=== PATIENT | male | born 1960 | race Caucasian/White ===

== ENCOUNTER 2021-11-25 21:08 | Inpatient (IN) | payer SELFPAY ==
[~2021-11-25] VITALS: Ht 167.6 cm; Wt 73.9 kg
--- NOTE | 2021-11-25 21:10 | NUR ---
[id number], SOB & LOW O2 SAT 74% ON RA X THURSDAY. COVID POSITIVE SINCE THEN. PATIENT ALERT AND ORIENTED X3, AMBULATORY PLACED IN BED 07 ON MONITOR AND POX. PLACED NON REBREATHER ON PATIENT AT 15L.
[2021-11-25] MEDS ORDERED: DEXAMETHASONE SOD PHOSPHATE 10 MG/ML VIAL ONE (21:39)
--- NOTE | 2021-11-25 21:48 | NUR ---
BLOOD WORK COLLECTED, SENT TO LAB.
--- NOTE | 2021-11-25 21:49 | NUR ---
GEORGE DONE AND SENT TO LAB
[2021-11-25] MEDS ORDERED: DEXAMETHASONE SOD PHOSPHATE 10 MG/ML VIAL IV ONE (22:00)
[2021-11-25 22:03] LABS: BASOPHILS % (AUTO) 0.2 % (0.0-2.0); EOSINOPHILS % (AUTO) 0.6 % (0.0-6.0); HEMATOCRIT 38 % (39-51); HEMOGLOBIN 12.9 g/dL (13.5-17.5); LYMPHOCYTES # (AUTO) 1.3 K/uL (0.8-4.8); LYMPHOCYTES % (AUTO) 9.9 % (20.0-44.0); MEAN CORPUSCULAR HGB CONC 34 g/dl (31.0-36.0); MEAN CORPUSCULAR VOLUME 88 fL (80-96); MONOCYTES # (AUTO) 0.6 K/uL (0.1-1.30); MONOCYTES % (AUTO) 4.9 % (2.0-12.0); NEUTROPHILS # (AUTO) 10.9 K/uL (1.8-8.9); NEUTROPHILS % (AUTO) 84.4 % (43.0-81.0); PLATELET COUNT (AUTO) 416 K/uL (150-450); RED BLOOD CELL COUNT(AUTO) 4.35 MIL/uL (4.5-6.0); WHITE BLOOD COUNT (AUTO) 12.9 K/uL (4.3-11.0)
[2021-11-25 22:18] LABS: CALCIUM, SERUM 7.8 mg/dL (8.5-10.1); CARBON DIOXIDE 24 mmol/L (21-32); CHLORIDE 96 mmol/L (98-107); CREATININE 0.9 mg/dL (0.6-1.3); GLUCOSE 141 mg/dL (74-106); POTASSIUM 3.7 mmol/L (3.5-5.1); SODIUM SERUM 128 mmol/L (136-145); UREA NITROGEN, BLOOD 9 mg/dL (7-18)
[2021-11-25 22:29] LABS: CREATINE KINASE, TOTAL 139 U/L (39-308)
[2021-11-25 22:32] LABS: ALANINE AMINOTRANSFERASE 61 U/L (12-78); ALBUMIN 2.9 g/dL (3.4-5.0); ALKALINE PHOSPHATASE 75 U/L (46-116); ASPARTATE AMINOTRANSFERASE 63 U/L (15-37); BILIRUBIN,TOTAL 1.3 mg/dL (0.2-1.0); TOTAL PROTEIN, SERUM 7.8 g/dL (6.4-8.2)
[2021-11-25 22:43] LABS: D-DIMER 8.73 mg/L(FEU (0.17-0.50)
--- NOTE | 2021-11-25 23:01 | NUR ---
JOSE EDUARDO LANG: [phone]
[2021-11-25 23:12] LABS: C-REACTIVE PROTEIN > 12.0 mg/dL (0.0-0.9)
[2021-11-26] MEDS ORDERED: ONDANSETRON HCL/PF 4 MG/2 ML VIAL IVP PRN
[2021-11-26] MEDS ORDERED: ACETAMINOPHEN 325 MG TABLET PO PRN
[2021-11-26] MEDS ORDERED: MAG HYDROX/AL HYDROX/SIMETH 30 ML UDC PO PRN
[2021-11-26] MEDS ORDERED: ZOLPIDEM TARTRATE 5 MG TABLET PO PRN
[2021-11-26] MEDS ORDERED: Z GUARD REMEDY 4 OZ OINT TP PRN
[2021-11-26] MEDS ORDERED: MAGNESIUM HYDROXIDE 30 ML UDC PO PRN
[2021-11-26 05:24] LABS: BASOPHILS % (AUTO) 0.2 % (0.0-2.0); EOSINOPHILS % (AUTO) 0.1 % (0.0-6.0); HEMATOCRIT 39 % (39-51); HEMOGLOBIN 13.3 g/dL (13.5-17.5); LYMPHOCYTES # (AUTO) 0.6 K/uL (0.8-4.8); LYMPHOCYTES % (AUTO) 5.1 % (20.0-44.0); MEAN CORPUSCULAR HGB CONC 34 g/dl (31.0-36.0); MEAN CORPUSCULAR VOLUME 89 fL (80-96); MONOCYTES # (AUTO) 0.4 K/uL (0.1-1.30); MONOCYTES % (AUTO) 3.2 % (2.0-12.0); NEUTROPHILS # (AUTO) 10.2 K/uL (1.8-8.9); NEUTROPHILS % (AUTO) 91.4 % (43.0-81.0); PLATELET COUNT (AUTO) 436 K/uL (150-450); RED BLOOD CELL COUNT(AUTO) 4.37 MIL/uL (4.5-6.0); WHITE BLOOD COUNT (AUTO) 11.2 K/uL (4.3-11.0)
[2021-11-26] MEDS ORDERED: ENOXAPARIN SODIUM 40 MG/0.4 ML DISP.SYRIN SQ ONE (05:40)
[2021-11-26] MEDS: ENOXAPARIN SODIUM 40 MG/0.4 ML DISP.SYRIN SQ SCH ×2 (05:43→21:28)
[2021-11-26 06:01] LABS: ALBUMIN 2.9 g/dL (3.4-5.0); BILIRUBIN,DIRECT 0.3 mg/dL (0.0-0.2); BILIRUBIN,TOTAL 1.2 mg/dL (0.2-1.0); CALCIUM, SERUM 9.3 mg/dL (8.5-10.1); CREATININE 0.9 mg/dL (0.6-1.3); MAGNESIUM 2.9 mg/dL (1.8-2.4); PHOSPHORUS 3.9 mg/dL (2.5-4.9); POTASSIUM 4.9 mmol/L (3.5-5.1)
--- NOTE | 2021-11-26 06:05 | NUR ---
BED 106
--- NOTE | 2021-11-26 07:49 | NUR ---
REPORT GIVEN TO NURSE JADE FOR ARMANDO
--- NOTE | 2021-11-26 08:37 | NUR ---
THE PATIENT IS TRANSFERED TO ROOM 106 IN STABLE CONDITION AND PER ACLS POLICY
--- NOTE | 2021-11-26 09:00 | NUR ---
RN NOTE RECEIVED PT BY Fransico SMYTH FROM ER, VITAL SIGN TAKEN AND WNL ,KEEP THE PT ON NON REBREATHER 15 L/M, O2SAT % 95 TO 100. NO DISTRESS OR SOB NOTED. A/OX4. PT IS ABLE TO MAKE ALL NEED KNOWN, LFA #18 INTACT AND PATENT FLUSHING WELL. SKIN INTACT. OBSERVED SAFETY MEASURES, HOB ELEVATED, BED IN LOCK POSITION, CALL LIGHT WITHIN REACH. WILL ARMANDO.
[2021-11-26] MEDS: DEXAMETHASONE SOD PHOSPHATE 10 MG/ML VIAL IV SCH (09:44)
[2021-11-26] MEDS: PANTOPRAZOLE 40 MG TABLET.DR PO SCH (09:44)
[2021-11-26 12:00] VITALS: BP 124/72
[2021-11-26 16:00] VITALS: BP 122/76
--- NOTE | 2021-11-26 18:35 | NUR ---
RN NOTE REMAIN PT ON NON REBREATHER 15 L/M, O2SAT % 95 TO 100. NO DISTRESS OR SOB NOTED. A/OX4. PT IS ABLE TO MAKE ALL NEED KNOWN, LFA #18 INTACT AND PATENT FLUSHING WELL. SKIN INTACT. OBSERVED SAFETY MEASURES, HOB ELEVATED, BED IN LOCK POSITION, CALL LIGHT WITHIN REACH. WILL ENDORSE TO NOC SHIFT.
--- NOTE | 2021-11-26 19:25 | NUR ---
1925 REPORT RECEIVED FROM KIM HANSEN FOR TRANSFER OF CARE.
--- NOTE | 2021-11-26 19:50 | NUR ---
1950 RECEIVED PATIENT IN BED WATCHING TV. NO SIGNS OF DISTRESS NOTED. DENIES PAIN WHEN ASKED. ON O2 AT 15L VIA NON REBREATHER MASK. NOTED TO BE SHORT OF BREATH ON EXERTION. O2 SATURATION 97%. HOB ELEVATED FOR MAXIMUM OXYGENATION. INDEPENDENT WITH ADLS. ENCOURAGED TO TURN TO HIS SIDE TOLERATED. PLACED CALL LIGHT WITHIN REACH. WILL CONT. TO MONITOR.
[2021-11-26 20:00] VITALS: BP 107/79
--- NOTE | 2021-11-26 23:00 | NUR ---
2300 PATIENT AWAKE AND WATCHING TV. CONT. TO DENY PAIN WHEN ASKED. NO C/O SHORTNESS BREATH OR DIFFICULTY BREATHING. REMAINS ON NRM AT 15L. HOB KEPT ELEVATED FOR MAX OXYGENATION. ENCOURAGED TO TURN TO SIDE TOLERATED. WILL CONT. TO MONITOR.
[2021-11-27] VITALS: BP 117/81
--- NOTE | 2021-11-27 01:00 | NUR ---
0100 SLEEPING ON HIS SIDE. NO SIGNS OF DISTRESS. WILL CONT. TO MONITOR.
[2021-11-27 04:00] VITALS: BP 109/75
--- NOTE | 2021-11-27 06:40 | NUR ---
0659 SPOKE WITH PATIENT'S DAUGHTER KIMBERLEE AND UPDATED HER ON PATIENT'S CONDITION WITH QUESTIONS ANSWERED.
[2021-11-27 06:53] LABS: BASOPHILS % (AUTO) 0.1 % (0.0-2.0); HEMATOCRIT 37 % (39-51); HEMOGLOBIN 12.4 g/dL (13.5-17.5); LYMPHOCYTES # (AUTO) 1.2 K/uL (0.8-4.8); LYMPHOCYTES % (AUTO) 5.7 % (20.0-44.0); MEAN CORPUSCULAR HGB CONC 33 g/dl (31.0-36.0); MEAN CORPUSCULAR VOLUME 89 fL (80-96); MONOCYTES # (AUTO) 0.8 K/uL (0.1-1.30); MONOCYTES % (AUTO) 3.8 % (2.0-12.0); NEUTROPHILS # (AUTO) 18.8 K/uL (1.8-8.9); NEUTROPHILS % (AUTO) 90.4 % (43.0-81.0); PLATELET COUNT (AUTO) 561 K/uL (150-450); RED BLOOD CELL COUNT(AUTO) 4.19 MIL/uL (4.5-6.0); WHITE BLOOD COUNT (AUTO) 20.8 K/uL (4.3-11.0)
--- NOTE | 2021-11-27 07:20 | NUR ---
0720 REPORT GIVEN TO RN KATI FOR TRANSFER OF CARE WITH QUESTIONS ANSWERED.
--- NOTE | 2021-11-27 07:30 | NUR ---
RN OPENING NOTES RECEIVED PATIENT IN BED AWAKE, ALERT/ORIENTED X4 AND VERBALLY RESPONSIVE. ON O2 AT 15 LPM VIA NONREBREATHER MASK SAT 94% BREATHING EVEN AND UNLABORED. NO SOB OR ANY SIGNS OF DISTRESS NOTED. IV ACCESS ON LEFT AC #20G FLUSHED, PATENT AND INTACT. NO SIGNS OF INFILTRATIONS. ALL APPLICABLE ISOLATION PRECAUTIONS IN PLACE. ALL SAFETY MEASURES IN PLACE. HOB ELEVATED, BED LOCKED AND IN LOWEST POSITION WITH SIDERAILS UP. CALL LIGHT PLACED WITHIN REACH. WILL CONTINUE TO MONITOR PATIENT ACCORDINGLY.
[2021-11-27 07:56] LABS: ALBUMIN 2.6 g/dL (3.4-5.0); BILIRUBIN,DIRECT 0.3 mg/dL (0.0-0.2); BILIRUBIN,TOTAL 0.8 mg/dL (0.2-1.0); CALCIUM, SERUM 8.3 mg/dL (8.5-10.1); CREATININE 0.7 mg/dL (0.6-1.3); POTASSIUM 4.1 mmol/L (3.5-5.1); TOTAL PROTEIN, SERUM 7.5 g/dL (6.4-8.2)
[2021-11-27 08:00] VITALS: BP 109/72
[2021-11-27] MEDS: PANTOPRAZOLE 40 MG TABLET.DR PO SCH (09:24)
[2021-11-27] MEDS: DEXAMETHASONE SOD PHOSPHATE 10 MG/ML VIAL IV SCH (09:25)
[2021-11-27] MEDS: FAMOTIDINE (20 MG) 20 MG TABLET PO SCH (09:28)
[2021-11-27] MEDS: AZITHROMYCIN 500 MG in IV D5W 250 ML IV SCH (10:04)
[2021-11-27] MEDS ORDERED: REMDESIVIR (CHARGED) 200 MG, *LOADING DOSE 1 EA in IV NS 0.9% 210 ML IV ONE (11:00)
[2021-11-27 12:00] VITALS: BP 114/65
[2021-11-27 16:00] VITALS: BP 110/74
--- NOTE | 2021-11-27 19:43 | NUR ---
RN CLOSING NOTES PATIENT REMAINS IN STABLE CONDITION THROUGHOUT SHIFT. BREATHING EVEN AND UNLABORED ON O2 15LPM VIA NONREBREATHER MASK, TOLERATING WELL SAT 95%. IV ACCESS ON LEFT FOREARM AND INTACT NO SIGNS OF INFILTRATIONS. ALL DUE MEDS GIVEN ORDERED. KEPT PATIENT CLEAN, DRY AND COMFORTABLE. ALL NEEDS ATTENDED. ALL APPLICABLE ISOLATION PRECAUTIONS IN PLACE. ALL SAFETY MEASURES IN PLACE: HOB ELEVATED, BED LOCKED AND IN LOWEST POSITION WITH SIDERAILS UP. CALL LIGHT WITHIN REACH. ENDORSED TO ONCOMING NURSE FOR CONTINUITY OF CARE.
[2021-11-27 20:00] VITALS: BP 116/74
--- NOTE | 2021-11-27 20:09 | NUR ---
RN OPENING NOTES RECEIVED PATIENT FROM AM NURSE IN BED, AWAKE AND ALERT/ORIENTED X4, ABLE TO VERBALIZE NEEDS. ON O2 AT 15 LPM VIA NONREBREATHER MASK O2 SAT 93% BREATHING EVEN AND UNLABORED. NO SOB OR ANY SIGNS OF DISTRESS NOTED. IV ACCESS ON LEFT AC #20G FLUSHED, PATENT AND INTACT. NO SIGNS OF INFILTRATIONS. NO SIGNIFICANT FINDINGS UPON INITIAL NURSING ASSESSMENTS. ALL APPLICABLE ISOLATION PRECAUTIONS IN PLACE. ALL SAFETY MEASURES IN PLACE. HOB ELEVATED, BED LOCKED AND IN LOWEST POSITION WITH SIDERAILS UP. CALL LIGHT PLACED WITHIN REACH. WILL CONTINUE TO MONITOR PATIENT.
[2021-11-27] MEDS: ENOXAPARIN SODIUM 40 MG/0.4 ML DISP.SYRIN SQ SCH (21:29)
[2021-11-28] VITALS: BP 123/85
[2021-11-28 04:00] VITALS: BP 110/74
--- NOTE | 2021-11-28 06:24 | NUR ---
RN CLOSING NOTES WILL ENDORSE PATIENT TO AM NURSE IN BED, AWAKE AND ALERT/ORIENTED X4, ABLE TO VERBALIZE NEEDS. ON O2 AT 15 LPM VIA NONREBREATHER MASK O2 SAT 91% BREATHING EVEN AND UNLABORED. NO SOB OR ANY SIGNS OF DISTRESS NOTED THROUGHOUT SHIFT. IV ACCESS ON LEFT AC #20G, PATENT AND INTACT, NO SIGNS OF INFILTRATIONS. NO SIGNIFICANT FINDINGS UPON ALL NURSING ASSESSMENTS. ALL APPLICABLE ISOLATION PRECAUTIONS IN PLACE. ALL SAFETY MEASURES IN PLACE. HOB ELEVATED, BED LOCKED AND IN LOWEST POSITION WITH SIDERAILS UP. CALL LIGHT PLACED WITHIN REACH. WILL ENDORSE TO AM NURSE FOR ARMANDO.
--- NOTE | 2021-11-28 07:30 | NUR ---
RN OPENING NOTES RECEIVED PATIENT IN BED AWAKE, ALERT/ORIENTED X4 AND VERBALLY RESPONSIVE, ABLE TO MAKE NEEDS KNOWN ON O2 AT 15 LPM VIA NONREBREATHER MASK SAT 93%. ON TELE MONITOR READING ST HR 106. NO SOB OR ANY SIGNS OF DISTRESS NOTED. IV ACCESS ON LEFT AC #20G FLUSHED, PATENT AND INTACT. NO SIGNS OF INFILTRATIONS. ALL APPLICABLE ISOLATION PRECAUTIONS IN PLACE. ALL SAFETY MEASURES IN PLACE. HOB ELEVATED, BED LOCKED AND IN LOWEST POSITION WITH SIDERAILS UP. CALL LIGHT PLACED WITHIN REACH. WILL CONTINUE TO MONITOR PATIENT ACCORDINGLY.
[2021-11-28 07:35] LABS: EOSINOPHILS % (AUTO) 1.8 % (0.0-6.0); HEMATOCRIT 38 % (39-51); HEMOGLOBIN 12.8 g/dL (13.5-17.5); MEAN CORPUSCULAR HGB CONC 34 g/dl (31.0-36.0); MEAN CORPUSCULAR VOLUME 89 fL (80-96); MONOCYTES # (AUTO) 0.4 K/uL (0.1-1.30); MONOCYTES % (AUTO) 3.4 % (2.0-12.0); NEUTROPHILS # (AUTO) 9.9 K/uL (1.8-8.9); NEUTROPHILS % (AUTO) 85.8 % (43.0-81.0); PLATELET COUNT (AUTO) 513 K/uL (150-450); RED BLOOD CELL COUNT(AUTO) 4.26 MIL/uL (4.5-6.0); WHITE BLOOD COUNT (AUTO) 11.6 K/uL (4.3-11.0)
[2021-11-28 07:49] LABS: ALBUMIN 2.7 g/dL (3.4-5.0); BILIRUBIN,DIRECT 0.3 mg/dL (0.0-0.2); BILIRUBIN,TOTAL 1.1 mg/dL (0.2-1.0); CREATININE 0.8 mg/dL (0.6-1.3); POTASSIUM 3.9 mmol/L (3.5-5.1); TOTAL PROTEIN, SERUM 7.8 g/dL (6.4-8.2)
[2021-11-28 08:00] VITALS: BP 115/73
[2021-11-28] MEDS: FAMOTIDINE (20 MG) 20 MG TABLET PO SCH (08:43)
[2021-11-28] MEDS: PANTOPRAZOLE 40 MG TABLET.DR PO SCH (08:43)
[2021-11-28] MEDS: DEXAMETHASONE SOD PHOSPHATE 10 MG/ML VIAL IV SCH (08:43)
[2021-11-28] MEDS ORDERED: REMDESIVIR (CHARGED) 100 MG in IV NS 0.9% 230 ML IV SCH (09:30)
[2021-11-28] MEDS: AZITHROMYCIN 500 MG in IV D5W 250 ML IV SCH (09:30)
--- NOTE | 2021-11-28 09:50 | NUR ---
RN NOTES NOTED LEAKING ON IV ACCESS ON LEFT AC #20. REINSERT NEW IV ACCESS ON RIGHT FOREARM #20G, PATENT, INTACT AND FLUSHES WELL WITH GOOD BLOOD RETURN. ALL NEEDS ATTENDED. ALL SAFETY MEASURES IN PLACE. CALL LIGHT WITHIN REACH. WILL CONTINUE TO MONITOR PATIENT ACCORDINGLY.
[2021-11-28 12:00] VITALS: BP 119/76
[2021-11-28] MEDS: REMDESIVIR (CHARGED) 100 MG in IV NS 0.9% 100 ML IV SCH (14:54)
[2021-11-28 16:00] VITALS: BP 131/73
--- NOTE | 2021-11-28 19:36 | NUR ---
INFORMATION TECHNOLOGY PROJECT MANAGER OPENING NOTES: RECEIVED REPORT. PATIENT IN NAD AND STABLE AT THIS TIME. ALERT AND ORIENTED TO PERSON, PLACE, TIME AND SITUATION. PATIENT ON NRM @15LPM, SPO2 94%. ENCOURAGED DEEP BREATHING TECHNIQUES. PATIENT VERBALIZES UNDERSTANDING AND REPEATS BACK DEMONSTRATION. TELEMETRY READING SR-ST. BED IN LOW/LOCKED POSITION. SIDE RAILS UP X2. HOB ELEVATED TO SEMI-FOWLERS POSITION. PATIENT DEMONSTRATES ABILITY TO USE CALL LIGHT AND VERBALIZE NEEDS EFFECTIVELY. CALL LIGHT AND FREQUENTLY USED ITEMS WITHIN REACH.
--- NOTE | 2021-11-28 19:38 | NUR ---
RN CLOSING NOTES PATIENT REMAINS IN STABLE CONDITION THROUGHOUT SHIFT. BREATHING EVEN AND UNLABORED ON O2 15LPM VIA NONREBREATHER MASK, TOLERATING WELL SAT 95%. IV ACCESS ON RIGHT FOREARM #20G PATENT AND INTACT NO SIGNS OF INFILTRATIONS. ALL DUE MEDS GIVEN ORDERED. KEPT PATIENT CLEAN, DRY AND COMFORTABLE. ALL NEEDS ATTENDED. ALL APPLICABLE ISOLATION PRECAUTIONS IN PLACE. ALL SAFETY MEASURES IN PLACE: HOB ELEVATED, BED LOCKED AND IN LOWEST POSITION WITH SIDERAILS UP. CALL LIGHT WITHIN REACH. ENDORSED TO ONCOMING NURSE FOR CONTINUITY OF CARE.
[2021-11-28 20:00] VITALS: BP 139/89
[2021-11-28] MEDS: ENOXAPARIN SODIUM 40 MG/0.4 ML DISP.SYRIN SQ SCH (21:23)
--- NOTE | 2021-11-28 22:14 | NUR ---
2214 RECEIVED A CALL FROM PATIENT'S DAUGHTER KIMBERLEE AND UPDATED HER ON PATIENT'S CONDITION AND PLAN OF CARE WITH QUESTIONS ANSWERED.
[2021-11-29] VITALS: BP 128/82
[2021-11-29] MEDS ORDERED: ALBUTEROL SULFATE INH 18 GM HFA.AER.AD IH PRN ×2 (02:00)
[2021-11-29 04:00] VITALS: BP 120/72
--- NOTE | 2021-11-29 05:57 | NUR ---
METHODS EXAMINER NOTE: RECEIVED CALL FROM PATIENT'S DAUGHTER KIMBERLEE AND UPDATED HER ON PATIENT'S CONDITION AND PLAN OF CARE WITH QUESTIONS ANSWERED. DAUGHTER VERBALIZES UNDERSTANDING.
--- NOTE | 2021-11-29 05:57 | NUR ---
SUBASSEMBLIES WIRER CLOSING NOTE: PATIENT HAD POOR SLEEP THROUGHOUT THE SHIFT D/T SOB/LABORED BREATHING AT REST ON 15LPM NON-REBREATHER MASK. DESAT TO 88%. HOSPITALIST WAS NOTIFIED AND NEW ORDERS OBTAINED FOR IH VENTOLIN AND ALBUTEROL 2 PUFFS Q4H PRN. AND HI-FLOW O2 SHOULD HE CONTINUE TO HAVE NO RELIEF AND O2 SATS DROP. PATIENT ADVISED TO REPOSITION IN BED AND FELT SOME RELIEF FOR A COUPLE OF HOURS IN SIDE-LYING POSITION (SPO2 INCREASED FROM 86% TO 92%). PATIENT HAD ANOTHER BOUT OF SOB/DIFFICULTY BREATHING. HE WAS INSTRUCTED INTO TRIPOD POSITIONING WHICH PROVIDED SOME RELIEF AND IMPROVED SPO2 FROM 86% TO 96%. PATIENT ON CONTINUOUS O2 MONITORING AT BEDSIDE. TELEMETRY READING ST FROM 102-124 THROUGHOUT MAJORITY OF THE NIGHT. LUNG SOUNDS DIMINISHED AT BASES WITH SCATTERED EXPIRATORY WHEEZES THROUGHOUT BILATERAL LUNG FERRO. PATIENT MAINTAINS HIS BASELINE MENTATION, DENIES PAIN/DIZZINESS. DENIES N/V/D/C. BED IN LOW/LOCKED POSITION. SIDE RAILS UP X2 HOB ELEVATED TO FOWLERS POSITION. PATIENT DEMONSTRATES ABILITY TO USE CALL LIGHT AND VERBALIZE NEEDS EFFECTIVELY. CALL LIGHT AND FREQUENTLY USED ITEMS WITHIN EASY REACH.
[2021-11-29] MEDS: PANTOPRAZOLE 40 MG TABLET.DR PO SCH (06:40)
[2021-11-29 07:10] LABS: BASOPHILS % (AUTO) 0.1 % (0.0-2.0); EOSINOPHILS % (AUTO) 1.1 % (0.0-6.0); HEMATOCRIT 39 % (39-51); HEMOGLOBIN 13.2 g/dL (13.5-17.5); LYMPHOCYTES # (AUTO) 0.8 K/uL (0.8-4.8); LYMPHOCYTES % (AUTO) 5.2 % (20.0-44.0); MEAN CORPUSCULAR HGB CONC 34 g/dl (31.0-36.0); MEAN CORPUSCULAR VOLUME 88 fL (80-96); MONOCYTES # (AUTO) 0.3 K/uL (0.1-1.30); NEUTROPHILS # (AUTO) 13.4 K/uL (1.8-8.9); NEUTROPHILS % (AUTO) 91.6 % (43.0-81.0); PLATELET COUNT (AUTO) 448 K/uL (150-450); RED BLOOD CELL COUNT(AUTO) 4.37 MIL/uL (4.5-6.0); WHITE BLOOD COUNT (AUTO) 14.7 K/uL (4.3-11.0)
--- NOTE | 2021-11-29 07:33 | NUR ---
RN OPENING NOTES RECEIVED PATIENT IN BED AWAKE, ALERT/ORIENTED X4 AND VERBALLY RESPONSIVE, ABLE TO MAKE NEEDS KNOWN ON O2 AT 15 LPM VIA NONREBREATHER MASK. ON TELE MONITOR READING. IV ACCESS ON LEFT AC #20G FLUSHED, PATENT AND INTACT. NO SIGNS OF INFILTRATIONS. ALL APPLICABLE ISOLATION PRECAUTIONS IN PLACE. ALL SAFETY MEASURES IN PLACE. HOB ELEVATED, BED LOCKED AND IN LOWEST POSITION WITH SIDERAILS UP. CALL LIGHT PLACED WITHIN REACH.
[2021-11-29 07:35] LABS: ALBUMIN 2.7 g/dL (3.4-5.0); BILIRUBIN,DIRECT 0.4 mg/dL (0.0-0.2); BILIRUBIN,TOTAL 1.3 mg/dL (0.2-1.0); CALCIUM, SERUM 8.2 mg/dL (8.5-10.1); CREATININE 0.8 mg/dL (0.6-1.3); POTASSIUM 4.1 mmol/L (3.5-5.1); TOTAL PROTEIN, SERUM 7.9 g/dL (6.4-8.2)
[2021-11-29 08:00] VITALS: BP 129/69
[2021-11-29] MEDS: FAMOTIDINE (20 MG) 20 MG TABLET PO SCH (09:13)
[2021-11-29] MEDS: DEXAMETHASONE SOD PHOSPHATE 10 MG/ML VIAL IV SCH (09:13)
[2021-11-29] MEDS: AZITHROMYCIN 500 MG in IV D5W 250 ML IV SCH (10:34)
[2021-11-29 12:00] VITALS: BP 116/65
[2021-11-29] MEDS: REMDESIVIR (CHARGED) 100 MG in IV NS 0.9% 100 ML IV SCH (15:41)
[2021-11-29 16:00] VITALS: BP 121/77
--- NOTE | 2021-11-29 18:41 | NUR ---
RN CLOSING NOTES PATIENT IN BED AWAKE, ALERT/ORIENTED X4 AND VERBALLY RESPONSIVE, ABLE TO MAKE NEEDS KNOWN ON O2 AT 15 LPM VIA NONREBREATHER MASK. ON TELE MONITOR READING. IV ACCESS ON LEFT AC #20G FLUSHED, PATENT AND INTACT. NO SIGNS OF INFILTRATIONS. ALL SCHEDULED MEDICATIONS WERE GIVEN. ALL APPLICABLE ISOLATION PRECAUTIONS IN PLACE. ALL SAFETY MEASURES IN PLACE. HOB ELEVATED, BED LOCKED AND IN LOWEST POSITION WITH SIDERAILS UP. CALL LIGHT PLACED WITHIN REACH. WILL ENDORSE TO NIGHT NURSE FOR ARMANDO.
[2021-11-29 20:00] VITALS: BP 120/71
--- NOTE | 2021-11-29 20:00 | NUR ---
UTILITY CLERK NOTES RECEIVED PATIENT IN BED AWAKE A/OX3 ,. PATIENT IS ON O2 AT 15LPM VIA NON-REBREATHER MASK,SATING 95% ON TELE SR -97 ON THE MONITOR NO SOB NO DISTRESS NOTED , NO RESPIRATORY DISTRESS NOTED AT THIS TIME NO C/O PAIN. V/S STABLE AFEBRILE,ALL DUE MEDS GIVEN ORDERED. NO ASE NOTED . IV ACCESS ON RIGHT FOREARM #20G, FLUSHED PATENT AND INTACT. NO SIGNS OF INFILTRATIONS. PATIENT IS ON ISOLATION DUE TO COVID . ALL SAFETY MEASURES IN PLACE. HOB ELEVATED, BED LOCKED AND IN LOWEST POSITION WITH SIDE RAILS UP, CALL LIGHT PLACED WITHIN REACH. WILL CONTINUE TO MONITOR PTS.
[2021-11-29] MEDS: ENOXAPARIN SODIUM 40 MG/0.4 ML DISP.SYRIN SQ SCH (20:40)
[2021-11-30] VITALS: BP 126/75
[2021-11-30 04:00] VITALS: BP 109/76
--- NOTE | 2021-11-30 06:23 | NUR ---
RN CLOSING NOTES PATIENT IN BED AWAKE, ALERT/ORIENTED X4 REMAINS ON O2 AT 15 LPM VIA NONREBREATHER MASK. ALL APPLICABLE ISOLATION PRECAUTIONS IN PLACE. ALL SAFETY MEASURES IN PLACE. HOB ELEVATED, BED LOCKED AND IN LOWEST POSITION WITH SIDERAILS UP. CALL LIGHT PLACED WITHIN REACH. WILL ENDORSE TO RN DAY SHIFT FOR CONTINUITY OF CARE.
[2021-11-30 07:09] LABS: EOSINOPHILS % (AUTO) 1.5 % (0.0-6.0); HEMATOCRIT 39 % (39-51); HEMOGLOBIN 13.1 g/dL (13.5-17.5); LYMPHOCYTES % (AUTO) 5.5 % (20.0-44.0); MEAN CORPUSCULAR HGB CONC 34 g/dl (31.0-36.0); MEAN CORPUSCULAR VOLUME 89 fL (80-96); MONOCYTES # (AUTO) 0.5 K/uL (0.1-1.30); MONOCYTES % (AUTO) 2.7 % (2.0-12.0); NEUTROPHILS # (AUTO) 15.9 K/uL (1.8-8.9); NEUTROPHILS % (AUTO) 90.3 % (43.0-81.0); PLATELET COUNT (AUTO) 464 K/uL (150-450); RED BLOOD CELL COUNT(AUTO) 4.34 MIL/uL (4.5-6.0); WHITE BLOOD COUNT (AUTO) 17.6 K/uL (4.3-11.0)
--- NOTE | 2021-11-30 07:30 | NUR ---
RN OPENING NOTES RECEIVED PATIENT IN BED, A&O X 4, VERBALLY RESPONSIVE, WITH NON-REBREATHER MASK @ 15LPM WITH O2 SAT OF 95%, NOT IN DISTRESS, NO COMPLAINTS OF PAIN NOTES. WITH IV RFA G20 PATENT AND INTACT. ISOLATION PRECAUTION ORDERED. BED TO LOWEST POSITION AND LOCKED, CALL LIGHT WITHIN REACH.
[2021-11-30 07:54] LABS: ALBUMIN 2.5 g/dL (3.4-5.0); BILIRUBIN,DIRECT 0.4 mg/dL (0.0-0.2); CALCIUM, SERUM 8.1 mg/dL (8.5-10.1); CREATININE 0.7 mg/dL (0.6-1.3); POTASSIUM 3.9 mmol/L (3.5-5.1); TOTAL PROTEIN, SERUM 7.7 g/dL (6.4-8.2)
[2021-11-30 08:00] VITALS: BP 122/87
[2021-11-30] MEDS: PANTOPRAZOLE 40 MG TABLET.DR PO SCH (08:23)
[2021-11-30] MEDS: FAMOTIDINE (20 MG) 20 MG TABLET PO SCH (09:09)
[2021-11-30] MEDS: AZITHROMYCIN 500 MG in IV D5W 250 ML IV SCH (09:10)
[2021-11-30] MEDS: DEXAMETHASONE SOD PHOSPHATE 10 MG/ML VIAL IV SCH (09:10)
[2021-11-30 12:00] VITALS: BP 136/87
[2021-11-30] MEDS: REMDESIVIR (CHARGED) 100 MG in IV NS 0.9% 100 ML IV SCH (15:06)
[2021-11-30 16:00] VITALS: BP 110/81
--- NOTE | 2021-11-30 18:46 | NUR ---
RN CLOSING NOTES PATIENT AWAKE IN BED, NRB @15LPM WITH O2 SAT OF 910%, AFEBRILE, NOT IN DISTRESS, NO COMPLAINTS OF PAIN NOTED. DUE MEDS GIVEN. KEPT HOB ELEVATED AND LOCKED. GIVEN BAG #3 OF REMDESIVIR IV. WILL ENDORSE TO NIGHT NURSE ON DUTY.
[2021-11-30 20:00] VITALS: BP 122/79
--- NOTE | 2021-11-30 20:00 | NUR ---
CANCELLATION CLERK NOTES RECEIVED PATIENT IN BED AWAKE A/OX3 ,. PATIENT IS ON O2 AT 15LPM VIA NON-REBREATHER MASK,SATING 92-94% ON TELE SR -ST102 ON THE MONITOR NO SOB NO DISTRESS NOTED , NO RESPIRATORY DISTRESS NOTED AT THIS TIME NO C/O PAIN. V/S STABLE AFEBRILE,ALL DUE MEDS GIVEN ORDERED. NO ASE NOTED . IV ACCESS ON RIGHT FOREARM #20G, FLUSHED PATENT AND INTACT. NO SIGNS OF INFILTRATIONS. PATIENT IS ON ISOLATION DUE TO COVID . ALL SAFETY MEASURES IN PLACE. HOB ELEVATED, BED LOCKED AND IN LOWEST POSITION WITH SIDE RAILS UP, CALL LIGHT PLACED WITHIN REACH. WILL CONTINUE TO MONITOR PTS.SPOKE TO THE DAUGHTER KIMBERLEE. UPDATED WITH PTS CONDITION.
[2021-11-30] MEDS: ENOXAPARIN SODIUM 40 MG/0.4 ML DISP.SYRIN SQ SCH (20:33)
[2021-12-01] VITALS (34 sets, daily range): BP systolic 102–145; BP diastolic 70–100
--- NOTE | 2021-12-01 06:11 | NUR ---
harley rn notes Pts remain in bed awake a/ox 3 on 15 liters of 02 via NRB sating 91-93 % no sob no distress noted .sometimes with episode panic attack saturation goes down to 80s spoke to pts encourage to calm down breath normally and relax .will continue to monitor -will endorse to RN day shift for continuity of care.daughter natalio called updated with pts condition.
--- NOTE | 2021-12-01 07:39 | NUR ---
RN OPENING NOTE RECEIVE REPORT FROM PIPELINES SUPERINTENDENT NURSE. PATIENT IN STABLE CONDITION. RECEIVING OXYGEN VIA NON-REBREATHER AT 15L/MIN WITH O2 SAT OF 89-93%. A/O X4. TELEMETRY SHOWS SINUS RHYTHM TO SINUS TACHY. PATIENT MOVE INDEPENDENTLY IN BED. PROPER ISOLATION PRECAUTION IN PLACE. ALL SAFETY MEASURE IN PLACE. BED ON LOWEST POSITION WITH HOB ELEVATED. CALL LIGHT WITHIN REACH. WILL CONTINUE TO MONITOR.
[2021-12-01 08:14] LABS: BASOPHILS % (AUTO) 0.1 % (0.0-2.0); EOSINOPHILS % (AUTO) 1.2 % (0.0-6.0); HEMATOCRIT 39 % (39-51); HEMOGLOBIN 13.3 g/dL (13.5-17.5); LYMPHOCYTES # (AUTO) 0.9 K/uL (0.8-4.8); LYMPHOCYTES % (AUTO) 4.3 % (20.0-44.0); MEAN CORPUSCULAR HGB CONC 34 g/dl (31.0-36.0); MEAN CORPUSCULAR VOLUME 88 fL (80-96); MONOCYTES # (AUTO) 0.6 K/uL (0.1-1.30); MONOCYTES % (AUTO) 3.2 % (2.0-12.0); NEUTROPHILS # (AUTO) 18.2 K/uL (1.8-8.9); NEUTROPHILS % (AUTO) 91.2 % (43.0-81.0); PLATELET COUNT (AUTO) 499 K/uL (150-450); RED BLOOD CELL COUNT(AUTO) 4.47 MIL/uL (4.5-6.0); WHITE BLOOD COUNT (AUTO) 19.9 K/uL (4.3-11.0)
[2021-12-01 08:36] LABS: ALBUMIN 2.5 g/dL (3.4-5.0); BILIRUBIN,DIRECT 0.4 mg/dL (0.0-0.2); BILIRUBIN,TOTAL 1.1 mg/dL (0.2-1.0); CALCIUM, SERUM 8.1 mg/dL (8.5-10.1); CREATININE 0.8 mg/dL (0.6-1.3); POTASSIUM 3.9 mmol/L (3.5-5.1); TOTAL PROTEIN, SERUM 7.7 g/dL (6.4-8.2)
[2021-12-01] MEDS: DEXAMETHASONE SOD PHOSPHATE 10 MG/ML VIAL IV SCH (08:52)
[2021-12-01] MEDS: PANTOPRAZOLE 40 MG TABLET.DR PO SCH (08:52)
[2021-12-01] MEDS: ENOXAPARIN SODIUM 40 MG/0.4 ML DISP.SYRIN SQ SCH ×2 (08:52→20:51)
[2021-12-01] MEDS: FAMOTIDINE (20 MG) 20 MG TABLET PO SCH (08:52)
--- NOTE | 2021-12-01 09:00 | NUR ---
RN NOTES RECEIVED PT ON BED FROM TK, PT IS A/Ox3, ON NONREBREATHER MASK , O2 SAT AT 73%, PT TACHYPNEIC AND ANXIOUS , PT PLACED ON HIGH FLOW O2 , O2 SAT UP TO 92-93%, ENCOURAGED SLOW AND DEEP BREATHING , ON TELE ST HR IN 120'S, NEW IV SITE PLACED ON L FA G 20 , SR UP x3, CALL LIGHT WITHIN EASY REACH, BED LOCKED AND IN LOWEST POSITION. CONTINUE TO MONITOR .
--- NOTE | 2021-12-01 09:28 | NUR ---
RN NOTE PATIENT WAS TRANSFER TO ICU PER DR. BECKER. REPORT WAS GIVEN TO TYRON ALVAREZ AT BED SIDE.
[2021-12-01] MEDS: AZITHROMYCIN 500 MG in IV D5W 250 ML IV SCH (09:31)
--- NOTE | 2021-12-01 09:48 | NUR ---
RT PATIENT REC'D TRANSFER FROM TK. PATIENT PLACED ON HFNC 40L 100% + NRB MASK. PATIENT CURRENTLY RESPONSIVE, SOB, IN MILD DISTRESS. Addendum: 12/01/21 at 0950 by LAURA BALES RT Amended: Links added.
--- NOTE | 2021-12-01 11:28 | NUR ---
RN NOTES DR BECKER NOTIFIED REGARDING ABG RESULTS . NO NEW ORDER GIVEN , PT A/Ox4
[2021-12-01] MEDS ORDERED: methylPREDNISolone SOD SUCC 40 MG/ML VIAL IV ONE (11:30)
[2021-12-01] MEDS ORDERED: diphenhydrAMINE HCL 50 MG/ML VIAL IV ONE (11:30)
[2021-12-01] MEDS ORDERED: ACETAMINOPHEN 325 MG TABLET PO ONE (11:30)
[2021-12-01] MEDS ORDERED: TOCILIZUMAB 600 MG in IV NS 0.9% 70 ML IV ONE (12:00)
[2021-12-01] MEDS: REMDESIVIR (CHARGED) 100 MG in IV NS 0.9% 100 ML IV SCH (14:52)
--- NOTE | 2021-12-01 15:00 | NUR ---
RN NOTES PT ANXIOUS AT TIMES AND PULLS OFF ON HIS NONREBREATHER MASK , REINFORCED TEACHING .
--- NOTE | 2021-12-01 18:12 | NUR ---
RN NOTES PT REMAINS ON HIGH FLOW AT 100% , 40 L AND NONREBREATHER MASK , O2 SAT WNL, ANXIOUS AT TIMES, ABLE TO USE URINAL , SR UP x3, BED LOCKED AND IN LOWEST POSITION, WILL ENDORSE TO BREAD ICER NURSE FOR CONTINUITY OF CARE.
--- NOTE | 2021-12-01 20:00 | NUR ---
RN NOTE PATIENT AWAKE, ALERT, AND ORIENTED X4. ON DOUBLE SET UP, NRB @ 15L AND HIGHFLOW NASAL CANNULA 100% 40L. O2 SAT >93-96%. PATIENT APPEARS ANXIOUS, DENIES ANY PAIN. CALM ENVIRONMENT PROVIDED. ALL NEEDS ATTENDED PROMPTLY. IV ACCESS ON RIGHT FA # 20 AND LEFT FA #20, PATENT AND INTACT. ABLE TO USE URINAL. BED LOCKED AND IN LOWEST POSITION. CALL LIGHT WITHIN REACH. ALL NEEDS ANTICIPATED.
[2021-12-02] VITALS (38 sets, daily range): BP systolic 71–147; BP diastolic 59–88
[2021-12-02] MEDS ORDERED: IV NS 0.9% 250 ML IV PRN (05:00)
[2021-12-02 05:02] LABS: EOSINOPHILS % (AUTO) 0.1 % (0.0-6.0); HEMATOCRIT 38 % (39-51); HEMOGLOBIN 12.8 g/dL (13.5-17.5); LYMPHOCYTES # (AUTO) 1.1 K/uL (0.8-4.8); LYMPHOCYTES % (AUTO) 6.8 % (20.0-44.0); MEAN CORPUSCULAR HGB CONC 34 g/dl (31.0-36.0); MEAN CORPUSCULAR VOLUME 88 fL (80-96); MONOCYTES # (AUTO) 0.7 K/uL (0.1-1.30); MONOCYTES % (AUTO) 4.3 % (2.0-12.0); NEUTROPHILS % (AUTO) 88.8 % (43.0-81.0); PLATELET COUNT (AUTO) 515 K/uL (150-450); RED BLOOD CELL COUNT(AUTO) 4.26 MIL/uL (4.5-6.0); WHITE BLOOD COUNT (AUTO) 16.8 K/uL (4.3-11.0)
[2021-12-02 05:36] LABS: ALBUMIN 2.4 g/dL (3.4-5.0); BILIRUBIN,DIRECT 0.3 mg/dL (0.0-0.2); BILIRUBIN,TOTAL 0.8 mg/dL (0.2-1.0); CALCIUM, SERUM 9.1 mg/dL (8.5-10.1); CREATININE 0.8 mg/dL (0.6-1.3); POTASSIUM 4.3 mmol/L (3.5-5.1); TOTAL PROTEIN, SERUM 7.5 g/dL (6.4-8.2)
--- NOTE | 2021-12-02 07:05 | NUR ---
RN NOTES RECEIVED PT ON BED , A/Ox4, ON NONREBREATHER AND HIGH FLOW O2 40L , 100%, O2 SAT WNL, PT STATED FEELS BETTER TODAY , ON TELE SR-ST , ABLE TO USED URINAL , IV SITES CLEAN ,DRY AND INTACT, SR UP x3, CALL LIGHT WITHIN EASY REACH, BED LOCKED AND IN LOWEST POSITION, CONTINUE TO MONITOR.
--- NOTE | 2021-12-02 07:31 | NUR ---
RN NOTE PATIENT RESTING IN BED. ON NRB @ 15L AND HIGHFLOW NASAL CANNULA 100% 40L. O2 SAT >93-96%. IV ACCESS ON RIGHT FA # 20 AND LEFT FA #20, PATENT AND INTACT. DUE MEDS GIVEN ORDERED. URINE OUTPUT [id number]. BED LOCKED AND IN LOWEST POSITION. CALL LIGHT WITHIN REACH. ENDORSED TO AM SHIFT.
[2021-12-02] MEDS: ENOXAPARIN SODIUM 40 MG/0.4 ML DISP.SYRIN SQ SCH ×2 (08:12→20:02)
[2021-12-02] MEDS: FAMOTIDINE (20 MG) 20 MG TABLET PO SCH (08:13)
[2021-12-02] MEDS: DEXAMETHASONE SOD PHOSPHATE 10 MG/ML VIAL IV SCH (08:13)
[2021-12-02] MEDS: PANTOPRAZOLE 40 MG TABLET.DR PO SCH (08:13)
--- NOTE | 2021-12-02 12:00 | NUR ---
RN NOTES PT SITTING UP IN BED, ON HIGH FLOW AND NONREBREATHER MASK, O2 SAT WNL, CONTINUE TO MONITOR
--- NOTE | 2021-12-02 12:00 | NUR ---
RN NOTES PT BACK FROM OR , CONTINUE TO MONITOR . Addendum: 12/02/21 at 1744 by CRUZ SILVA RN CORRECTION PLEASE DISREGARD ABOVE CHARTING , CHARTED ON A WRONG PT
[2021-12-02] MEDS ORDERED: TOCILIZUMAB 400 MG in IV NS 0.9% 80 ML IV ONE (17:00)
--- NOTE | 2021-12-02 18:28 | NUR ---
RN NOTES PT REMAINS ON HIGH FLOW AT 100% , 40 L AND NONREBREATHER MASK , O2 SAT WNL, ANXIOUS AT TIMES, ABLE TO USE URINAL , SR UP x3, BED LOCKED AND IN LOWEST POSITION, WILL ENDORSE TO PSYCHOTHERAPIST COUNSELOR NURSE FOR CONTINUITY OF CARE.
--- NOTE | 2021-12-02 19:55 | NUR ---
RN NOTE PATIENT AWAKE, ALERT AND ORIENTED X4. ON NONREBREATHER @ 15L AND HIGH FLOW NASAL CANNULA 40L FIO2 100%. SINUS TACHY ON MONITOR. PATIENT APPEARS ANXIOUS, PROVIDED CALM ENVIRONMENT. DENIES ANY PAIN AT THIS TIME. PATIENT ABLE TO USE URINAL. IV ACCESS ON RIGHT FOREARM #20 AND LEFT FOREARM #20 PATENT AND INTACT. BED LOCKED AND IN LOWEST POSITION. CALL LIGHT WITHIN REACH. ALL NEEDS ANTICIPATED.
[2021-12-03] VITALS (37 sets, daily range): BP systolic 96–177; BP diastolic 60–95
[2021-12-03 00:53] LABS: ABG BASE EXCESS 1.2 mmol/L; ABG OXYGEN SATURATION 91.5 % (92.0-98.5); ABG PCO2 33.8 mmHg (35.0-45.0); ABG PH 7.474 (7.350-7.450); AaDO2 621.2 mmHg; COHb 0.5 % (0.5-1.5); SITE, ABG Right Brachial
[2021-12-03 04:58] LABS: BASOPHILS % (AUTO) 0.1 % (0.0-2.0); EOSINOPHILS % (AUTO) 1.3 % (0.0-6.0); HEMATOCRIT 39 % (39-51); HEMOGLOBIN 13.5 g/dL (13.5-17.5); LYMPHOCYTES # (AUTO) 1.8 K/uL (0.8-4.8); LYMPHOCYTES % (AUTO) 10.8 % (20.0-44.0); MEAN CORPUSCULAR HGB CONC 34 g/dl (31.0-36.0); MEAN CORPUSCULAR VOLUME 89 fL (80-96); MONOCYTES # (AUTO) 0.7 K/uL (0.1-1.30); MONOCYTES % (AUTO) 4.5 % (2.0-12.0); NEUTROPHILS # (AUTO) 13.7 K/uL (1.8-8.9); NEUTROPHILS % (AUTO) 83.3 % (43.0-81.0); PLATELET COUNT (AUTO) 657 K/uL (150-450); RED BLOOD CELL COUNT(AUTO) 4.45 MIL/uL (4.5-6.0); WHITE BLOOD COUNT (AUTO) 16.4 K/uL (4.3-11.0)
[2021-12-03 05:08] LABS: CALCIUM, SERUM 8.7 mg/dL (8.5-10.1); CREATININE 0.8 mg/dL (0.6-1.3); POTASSIUM 4.1 mmol/L (3.5-5.1)
--- NOTE | 2021-12-03 07:30 | NUR ---
RN NOTE PATIENT RECEIVED AWAKE, SITTING ON BED A/O X4, NO S/SX OF DISTRESS, ON NONREBREATHER @ 15L AND HF NC 40L FIO2 100%. PT ABLE TO MAKE HIS NEED KNOWN, URINAL AT BEDSIDE AVAILABLE. IV ACCESS ON RFA #20 AND LFA #20 PATENT AND INTACT. SAFETY MEASURES OBSERVED, BED LOCKED AND IN LOW POSITION. CALL LIGHT WITHIN REACH. HOB ELEVATED, WILL ARMANDO.
--- NOTE | 2021-12-03 07:33 | NUR ---
RN NOTE PATIENT AWAKE IN BED. ON NONREBREATHER @ 15L AND HIGH FLOW NASAL CANNULA 40L FIO2 100%. O2 SAT WNL. IV ACCESS ON RIGHT FOREARM #20 AND LEFT FOREARM #20 PATENT AND INTACT. ALL NEEDS ATTENDED PROMPTLY. BED LOCKED AND IN LOWEST POSITION. CALL LIGHT WITHIN REACH. ENDORSED TO AM SHIFT.
[2021-12-03] MEDS: FAMOTIDINE (20 MG) 20 MG TABLET PO SCH (08:10)
[2021-12-03] MEDS: DEXAMETHASONE SOD PHOSPHATE 10 MG/ML VIAL IV SCH (08:10)
[2021-12-03] MEDS: PANTOPRAZOLE 40 MG TABLET.DR PO SCH (08:10)
[2021-12-03] MEDS: ENOXAPARIN SODIUM 40 MG/0.4 ML DISP.SYRIN SQ SCH ×2 (08:11→20:37)
--- NOTE | 2021-12-03 18:41 | NUR ---
RN NOTE PATIENT REMAIN AWAKE, SITTING ON BED A/O X4, NO S/SX OF DISTRESS, PT ON NONREBREATHER @ 15L AND HF NC 40L FIO2 100%. PT ABLE TO MAKE HIS NEED KNOWN, URINAL AT BEDSIDE AVAILABLE. IV ACCESS ON RFA #20 AND LFA #20 PATENT AND INTACT. PT REFUSE TO CHANGE HIS BED LINEN, SAFETY MEASURES OBSERVED, BED LOCKED AND IN LOW POSITION. CALL LIGHT WITHIN REACH. HOB ELEVATED, WILL ENDORSE TO NOC SHIFT. .
[2021-12-03 21:05] LABS: ABG OXYGEN SATURATION 93.6 % (92.0-98.5); ABG PCO2 32.2 mmHg (35.0-45.0); ABG PH 7.454 (7.350-7.450); ABG PO2 66.4 mmHg (75.0-100.0); AaDO2 614.4 mmHg; COHb 0.3 % (0.5-1.5); MetHb 0.1 % (0.0-1.5); O2Hb 93.2 % (94.0-97.0); SITE, ABG Right Radial; VENT MODE, BG HFNC 100% + NRB
[2021-12-04] VITALS (79 sets, daily range): BP systolic 39–178; BP diastolic 27–137
[2021-12-04 04:39] LABS: BASOPHILS # (AUTO) 0.1 K/uL (0.0-0.2); BASOPHILS % (AUTO) 0.4 % (0.0-2.0); EOSINOPHILS % (AUTO) 3.7 % (0.0-6.0); HEMATOCRIT 43 % (39-51); HEMOGLOBIN 14.4 g/dL (13.5-17.5); LYMPHOCYTES # (AUTO) 2.1 K/uL (0.8-4.8); LYMPHOCYTES % (AUTO) 10.4 % (20.0-44.0); MEAN CORPUSCULAR HGB CONC 33 g/dl (31.0-36.0); MEAN CORPUSCULAR VOLUME 89 fL (80-96); MONOCYTES # (AUTO) 0.7 K/uL (0.1-1.30); MONOCYTES % (AUTO) 3.4 % (2.0-12.0); NEUTROPHILS # (AUTO) 16.8 K/uL (1.8-8.9); NEUTROPHILS % (AUTO) 82.1 % (43.0-81.0); PLATELET COUNT (AUTO) 702 K/uL (150-450); RED BLOOD CELL COUNT(AUTO) 4.84 MIL/uL (4.5-6.0); WHITE BLOOD COUNT (AUTO) 20.5 K/uL (4.3-11.0)
[2021-12-04 05:03] LABS: ALBUMIN 2.7 g/dL (3.4-5.0); BILIRUBIN,DIRECT 0.3 mg/dL (0.0-0.2); CALCIUM, SERUM 8.3 mg/dL (8.5-10.1); CREATININE 0.8 mg/dL (0.6-1.3); MAGNESIUM 2.1 mg/dL (1.8-2.4); PHOSPHORUS 3.8 mg/dL (2.5-4.9); POTASSIUM 4.3 mmol/L (3.5-5.1); TOTAL PROTEIN, SERUM 7.6 g/dL (6.4-8.2)
--- NOTE | 2021-12-04 05:15 | NUR ---
RN NOTE PATIENT O2 SAT 76%, RESPIRATIONS RATE IS 40, AND USING ACCESSORY MUSCLES. CONTINUES ON HFNC 40L 100% FIO2 AND NRB @ 15L. STAT ABG ORDERED. WILL CONTINUE TO MONITOR.
--- NOTE | 2021-12-04 05:30 | NUR ---
RN NOTE PAGED CHEMICAL PLANT OPERATOR MD DALLAS TO RELAY ABG RESULT PO2 41.2, WAITING FOR CALL BACK. PATIENT UNABLE TO MAKE DECISION IF OK TO INTUBATE. PATIENT SPEAKING WITH DAUGHTER.
--- NOTE | 2021-12-04 06:05 | NUR ---
RN NOTE 0605 SPOKE WITH DAUGHTER JOSE EDUARDO AND AGREED OKAY FOR PATIENT TO BE INTUBATED. VERIFIED WITH PATIENT AND SAMI SPEAKER AND IS OKAY FOR INTUBATED. 0607 SPOKE WITH CELENA CROUCH WITH ORDERS TO FOLLOW UP WITH PHYSICAL BIOCHEMIST SIOBHAN. PAGED SIOBHAN WAITING FOR ANY NEW ORDERS.
--- NOTE | 2021-12-04 06:43 | NUR ---
RN NOTE PAGED ONCALL CHIEF SCIENTIST AT THIS TIME, WAITING FOR ANY NEW ORDERS. PATIENT O2 SAT 75-80'S AND CONTINUES ON O2 HFNC 40L 100% AND IN DISTRESS. PROVIDED CALM ENVIRONMENT. WAITING FOR ANY NEW ORDERS.
--- NOTE | 2021-12-04 06:55 | NUR ---
RN NOTE SPOKE WITH ONCALL DR. FRANK, AND UPDATED ON PATIENT'S CONDITION AND RELAYED ABG RESULT. WITH NEW ORDER FOR INTUBATE. NOTED AND CARRIED OUT. PATIENT AND JOSE EDUARDO MADE AWARE.
--- NOTE | 2021-12-04 07:10 | NUR ---
RN NOTE WAITING FOR ER MD FOR INTUBATION. REPORT GIVEN TO DAY SHIFT NURSE.
--- NOTE | 2021-12-04 07:23 | NUR ---
pt. intubated by Dr. Alfaro due to increase work of breathing and 80% spo2 on high flow 100% fio2 with non rebreather mask. pt. intubated with 7.0 ETT secured @ 24 cm lipline. CO2 detector changed to yellow color with breath sounds clear bilateral post intubation. vent parameters set as order: AC 24, VT 500, FIO2 100%, PEEP +8. VENT PLUGGED INTO RED OUTLET WITH ALARMS ON AND FUNCTIONING. AMBUBAG @ BEDSIDE. Addendum: 12/04/21 at 0804 by DEVON BOO RT Amended: Links added.
[2021-12-04] MEDS ORDERED: PROPOFOL 100 ML IV PRN (07:30)
--- NOTE | 2021-12-04 07:30 | NUR ---
ART INSTRUCTOR OPENING NOTES Patient received from previous shift waiting to be intubated. All staff needed for Mechanical ventilation by the room awaiting the physician.Medications prepared by previou shift nursing material handling crew supervisor ( Etonidate and Rocuronium). Intubation done by Dr Alfaro. Patient noted with 7.0/24 ET tube with mechanical ventilation set up of TV 500, peep of 8, ac 24, fi02 of 100%. Patient will be monitored.
[2021-12-04] MEDS ORDERED: ETOMIDATE 2 MG/ML VIAL IV ONE (08:16)
[2021-12-04] MEDS ORDERED: ROCURONIUM BROMIDE 50 MG/5 ML IV ONE (08:16)
[2021-12-04] MEDS ORDERED: LORAZEPAM INJ 2 MG/ML VIAL IV STA (08:17)
--- NOTE | 2021-12-04 08:34 | NUR ---
VENT CHANGES BELOW PER DR. REYES: VT 450 PEEP +12 Addendum: 12/04/21 at 0835 by DEVON BOO RT Amended: Links added.
[2021-12-04] MEDS ORDERED: EPINEPHRINE (1:10,000) SYRINGE 1 MG/10 ML DISP.SYRIN IVP ONE ×3 (08:51→13:43)
--- NOTE | 2021-12-04 09:00 | NUR ---
Patient noted to have PEA rhythm on front desk monitor. Pulse checked none found, code blue initiated. CPR started when no pulse noted at 839 am and epi given 840 am. RT continued with CPR. Pulse check done none found, Another Epi given at 3 minute interval at [address] Carvajal at bedside. CPR continued. ROSC AT [address] Dsouza made aware.
--- NOTE | 2021-12-04 09:25 | NUR ---
Patient noted with PEA ( 2ND TIME). Code blue initiated at 920 No pulse found, cpr started and epi given at 920. Bicarb given at 922, Patient remained pulseless, EPi given three minutes later and 924 pulse [address] Doctor Peleg at bedside during the whole PEA event. Epi drip orders will be initiated.
[2021-12-04] MEDS: EPINEPHRINE (1:1000) 10 MG in IV NS 0.9% 240 ML IV PRN ×2 (09:32→12:00)
--- NOTE | 2021-12-04 09:32 | NUR ---
Epi started and daughter called second time to update regarding the 2nd code
[2021-12-04] MEDS ORDERED: SODIUM BICARBONATE SYR 50 MEQ/50 ML DISP.SYRIN IV ONE ×3 (10:04→13:43)
--- NOTE | 2021-12-04 10:13 | NUR ---
Patient noted with third episode of PEA on monitor. Pulse checked none found. Code blue and CPR initiated at 953. Dr Carvajal at bedside along with RT. Patient given epi at 956 am, bicarb at 957 and another bicarba t 958 and epi at 959. All meds given per md order at bedside. ROSC resumed at 1000. Family aware.
[2021-12-04] MEDS ORDERED: PANTOPRAZOLE 40 MG VIAL IV SCH (10:30)
[2021-12-04] MEDS ORDERED: FAMOTIDINE/PF INJ 20 MG/2 ML VIAL IV SCH (10:30)
[2021-12-04] MEDS: DEXAMETHASONE SOD PHOSPHATE 10 MG/ML VIAL IV SCH (10:43)
--- NOTE | 2021-12-04 10:48 | NUR ---
RT RELAYED ABG TO DR KAUR. PER MD TO CHANGE AC 32 PEEP OF 15. RT TO CHANGE SETTING AND 2 AMPS OF BICARB
[2021-12-04] MEDS: ENOXAPARIN SODIUM 40 MG/0.4 ML DISP.SYRIN SQ SCH (10:51)
--- NOTE | 2021-12-04 10:56 | NUR ---
vent changes below per dr. cardenas: JAG 32 PEEP 15 Addendum: 12/04/21 at 1056 by DEVON BOO RT Amended: Links added.
--- NOTE | 2021-12-04 13:24 | NUR ---
Patient noted with labored breathing. Propofol restarted and titrated to 10 mcg. Patient noted with SBP trending down after dirpivan restarted. Informed MD Carvajal. Per Md to start GIOVANNI drip. Orders carried out. Awaiting giovanni from pharmacy
[2021-12-04] MEDS ORDERED: PHENYLEPHRINE 100 MG in IV NS 0.9% 240 ML IV PRN (13:30)
--- NOTE | 2021-12-04 13:43 | NUR ---
ONGOING CPR STOPPED BY PATIENT AND DAUGHTER. S/P CODE BLUE X 4 . ASYSTOLE ON MONITOR. NO PALPABLE PULSES. NO HEART TONE. NO SPONTANEOUS RESPIRATION. PUPILS FIXED AND DILATED. PRONOUNCED.
--- NOTE | 2021-12-04 13:50 | NUR ---
Patient noted with PEA, no pulse and CPR and code blue initiated at 1336, Epi given at 1336. 1337 Bicarb given while pushing 1 amp of bicarb and MD Carvajal at bedside, family informed MD to stop CPR. Family outisde of the room during the code. MD Dsouza made aware. Family took belongings of the patient. Per administration, family went into the patients room for 10 minutes with full PPE, N95, GOWN , GLOVES, FACE SHIELD AND SHOE AND HEAD COVERS.
--- NOTE | 2021-12-04 15:00 | NUR ---
Post mortem care provided to the body and patient's body transferred to the [facility] [place].
[2021-12-05 10:50] LABS: ABG BASE EXCESS -3.2 mmol/L; ABG OXYGEN SATURATION 76.2 % (92.0-98.5); ABG PCO2 32.5 mmHg (35.0-45.0); ABG PH 7.413 (7.350-7.450); ABG PO2 41.2 mmHg (75.0-100.0); AaDO2 639.3 mmHg; COHb 0.6 % (0.5-1.5); MetHb 0.1 % (0.0-1.5); O2Hb 75.7 % (94.0-97.0); SITE, ABG Right Radial; VENT MODE, BG HFNC 40L 100% +NRB
[2021-12-05 10:57] LABS: ABG OXYGEN SATURATION 62.9 % (92.0-98.5); ABG PCO2 66.8 mmHg (35.0-45.0); ABG PH 7.121 (7.350-7.450); ABG PO2 43.8 mmHg (75.0-100.0); AaDO2 602.4 mmHg; COHb 0.6 % (0.5-1.5); MetHb 0.3 % (0.0-1.5); O2Hb 62.3 % (94.0-97.0); PEEP,BG 12 cm H2O; SITE, ABG Right Brachial; VT, ABG 450 mL
== END 2021-12-04 17:55 | DRG 871 ==
LOC: ER 21:11 → TRANSITION 11-26 04:38 → TELE1 11-26 06:12 → ICU 12-01 09:09
PROVIDERS: ADMIT Student in an Organized Health Care Education/Training Program; ATTEND Internal Medicine
PROC: XW033E5 Introduction of Remdesivir Anti-infective into Peripheral Vein, Percutaneous Approach, New Technology Group 5 (ICD-10-PCS; 2021-11-27)
PROC: XW033H5 Introduction of Tocilizumab into Peripheral Vein, Percutaneous Approach, New Technology Group 5 (ICD-10-PCS; 2021-12-01)
PROC: 5A1935Z Respiratory Ventilation, Less than 24 Consecutive Hours (ICD-10-PCS; principal; 2021-12-04)
PROC: 0BH18EZ Insertion of Endotracheal Airway into Trachea, Via Natural or Artificial Opening Endoscopic (ICD-10-PCS; 2021-12-04)
PROC: 02HV33Z Insertion of Infusion Device into Superior Vena Cava, Percutaneous Approach (ICD-10-PCS; 2021-12-04)
PROC: B548ZZA Ultrasonography of Superior Vena Cava, Guidance (ICD-10-PCS; 2021-12-04)
DX: A41.89 Other specified sepsis (principal); J12.82 Pneumonia due to coronavirus disease 2019; J96.01 Acute respiratory failure with hypoxia; U07.1 COVID-19; J96.02 Acute respiratory failure with hypercapnia; E44.0 Moderate protein-calorie malnutrition; E87.1 Hypo-osmolality and hyponatremia; D64.9 Anemia, unspecified; R74.01 Elevation of levels of liver transaminase levels; E88.09 Other disorders of plasma-protein metabolism, not elsewhere classified; Z68.26 Body mass index [BMI] 26.0-26.9, adult
CPT/HCPCS: 36415; 36600; 71045-TC; 80048-TC; 80053-TC; 80076-TC; 82550-TC; 82728-TC; 82803-TC; 83605-TC; 83615-TC; 83735-TC; 83880; 84100-TC; 84484-TC; 85025-TC; 85378-TC; 85610-TC; 85730-TC; 86140-TC; 86480; 87040-TC; 87081-TC; 87899; 93970-TC; 94002-TC; 94760-TC; 94799-TC; A4216; C9113; G0378; J0171; J0456; J1100; J1200; J1650; J2370; J2405; J2920; J3262; J3490; J7030; J7050; J7060; U0003